=== PATIENT | female | born 1980 | race Caucasian/White ===

== ENCOUNTER 2023-02-03 04:31 | Emergency (ER) | payer MEDICAID ==
[~2023-02-03] VITALS: Ht 162.6 cm; Wt 66.0 kg
[2023-02-03 04:43] VITALS: TEMP 97.8; O2SAT 98
[2023-02-03 08:33] LABS: HEMATOCRIT 40.7 % (36.0-48.0); HEMOGLOBIN 13.4 g/dL (12.0-16.0); MEAN CORPUSCULAR HEMOGLOBIN 29.6 pg (28.0-32.0); MEAN CORPUSCULAR VOLUME 89.8 fL (81.0-99.0); PLATELET 362 x1000/uL (130-400); RED BLOOD CELL COUNT 4.54 mill/uL (4.2-5.4); WHITE BLOOD COUNT 9.7 x1000/uL (4.5-11.0)
[2023-02-03 08:54] LABS: ALANINE AMINOTRANSFERASE 22 IU/L (10-49); ALBUMIN 4.2 g/dL (3.2-4.8); ASPARTATE AMINOTRANSFERASE 15 IU/L (<34); BILIRUBIN TOTAL 0.2 mg/dL (0.1-1.0); CALCIUM 9.1 mg/dL (8.7-10.4); CARBON DIOXIDE 29 mEq/L (21-32); CHLORIDE 108 mEq/L (98-107); CREATININE 0.6 mg/dL (0.6-1.0); GLUCOSE 126 mg/dL (70-105); POTASSIUM 4.2 mEq/L (3.5-5.1); PROTEIN TOTAL 6.2 g/dL (6.0-8.3); SODIUM 142 mEq/L (136-145); UREA NITROGEN BLOOD 11 mg/dL (9-23)
[2023-02-03 09:01] LABS: CLARITY URINE CLOUDY (CLEAR); COLOR URINE YELLOW (YELLOW)
[2023-02-03 09:02] LABS: GLUCOSE URINE NEGATIVE (NEGATIVE); KETONES URINE NEGATIVE (NEGATIVE); LEUKOCYTE ESTERASE URINE 2+ (NEGATIVE); NITRITE URINE NEGATIVE (NEGATIVE); OCCULT BLOOD URINE 3+ (NEGATIVE); PH URINE 6.5 (4.5-8.0); PROTEIN URINE 2+ (NEGATIVE); SPECIFIC GRAVITY URINE >=1.030 (1.005-1.030); UROBILINOGEN URINE 0.2 E.U./dL (0.2-1.0)
[2023-02-03 09:05] LABS: BACTERIA URINE 2+; CALCIUM OXALATE CRYSTALS URINE 2+ /lpf; WBC URINE TNTC /hpf (0-2)
[2023-02-03 09:07] LABS: RBC URINE 50-100 /hpf (0-2); SQUAMOUS EPITHELIAL CELL URINE 1+ /lpf (RARE/1+); YEAST URINE NONE SEEN
[2023-02-03] MEDS: KETOROLAC 60MG/2ML VIAL IM NR ×2 (09:15→10:03)
[2023-02-03] MEDS ORDERED: PHENAZOPYRIDINE HCL 100MG TABLET PO NR (09:15)
[2023-02-03] MEDS ORDERED: CEPH500T MT (09:15)
[2023-02-03] MEDS ORDERED: CEPHALEXIN 250MG CAPSULE PO NR (09:15)
[2023-02-03] MEDS ORDERED: PHEN-815 MT (09:15)
[2023-02-03 09:30] VITALS: BP 146/79; PULSE 80; RESP 18
[2023-02-03] MEDS ORDERED: CEFTRIAXONE SODIUM 500 MG/VIAL IM ONE (09:30)
[2023-02-03] MEDS ORDERED: HYDROCODONE/ACETAMINOPHEN 5/325MG TABLET PO ONE (09:30)
[2023-02-03] MEDS ORDERED: AZITHROMYCIN 500 MG TABLET PO ONE (09:30)
== END 2023-02-03 10:05 | disposition home or self-care (01) ==
LOC: ER 04:31
DX: N39.0 Urinary tract infection, site not specified (principal); Z11.3 Encounter for screening for infections with a predominantly sexual mode of transmission
CPT/HCPCS: 80053; 81003; 81025; 85027; 87086; 36415; 96372; 99284; J0696; J1885; Z7610